=== PATIENT | female | born 1970 | race Caucasian/White ===

== ENCOUNTER 2022-11-30 07:34 | Outpatient (CLI) | payer BC, SELFPAY | END 2022-11-30 07:35 | disposition home or self-care (01) | PROVIDERS: PCP Internal Medicine; Referring Provider Internal Medicine; Visit Provider Internal Medicine | DX: I10 Essential (primary) hypertension (principal); E78.5 Hyperlipidemia, unspecified; D64.9 Anemia, unspecified | CPT/HCPCS: 80053; 80061 ==

== ENCOUNTER 2023-07-19 07:33 | Outpatient (CLI) | payer BC, SELFPAY | END 2023-07-19 07:34 | disposition home or self-care (01) | LOC: NFLDREF 07-22 03:05 | PROVIDERS: PCP Internal Medicine; Referring Provider Internal Medicine; Visit Provider Obstetrics & Gynecology | DX: E78.1 Pure hyperglyceridemia (principal) | CPT/HCPCS: 80061 ==

== ENCOUNTER 2023-12-03 07:45 | Outpatient (CLI) | payer BC, SELFPAY | END 2023-12-03 07:46 | disposition home or self-care (01) | LOC: NFLDREF 17:08 | PROVIDERS: PCP Internal Medicine; Referring Provider Internal Medicine; Visit Provider Internal Medicine | DX: E78.1 Pure hyperglyceridemia (principal); D64.9 Anemia, unspecified | CPT/HCPCS: 80053; 80061 ==

== ENCOUNTER 2025-03-12 08:17 | Outpatient (CLI) | payer BC, SELFPAY | END 2025-03-12 08:18 | disposition home or self-care (01) | LOC: NFLDREF 03-17 04:57 | PROVIDERS: PCP Internal Medicine; Referring Provider Internal Medicine; Visit Provider Family Medicine | DX: E78.1 Pure hyperglyceridemia (principal) | CPT/HCPCS: 80053; 80061 ==